=== PATIENT | male | born 1995 | race Caucasian/White ===

== ENCOUNTER 2017-04-07 23:13 | Emergency (ER) | payer OTHER ==
[~2017-04-07] VITALS: Ht 185.4 cm; Wt 97.7 kg
[2017-04-07] MEDS ORDERED: KETOROLAC 60 MG INJ IM STA (23:29)
[2017-04-07] MEDS ORDERED: HYDROCODONE/APAP (10/325) TAB PO ONE (23:30)
[2017-04-07 23:40] VITALS: Ht 185.4 cm; Wt 97.7 kg
--- NOTE | 2017-04-08 00:39 | RADRPT ---
PROCEDURE: XR shoulder. CLINICAL INDICATION: Pain TECHNIQUE: Two views of the right shoulder were performed. COMPARISON: None available. FINDINGS: There is normal mineralization and alignment. No fracture or osseous lesion is identified. The joint spaces are preserved. The soft tissues are unremarkable. RPTAT:HJJR IMPRESSION: Unremarkable right shoulder series. Physician Lopez Date Time Electronically viewed and signed by Andre Nassar Physician on 04/08/2017 00:39 JR/
[2017-04-08] MEDS ORDERED: IBUP-1542 PO (00:42)
--- NOTE | 2017-04-08 00:44 | ERD ---
ER Documentation Chief Complaint Date/Time DATE: 04/08/17 TIME: 00:43 Chief Complaint right shoulder pain due to fall onto ice ground level HPI This is a 21-year-old male who has right shoulder pain secondary to a fall on an ice rink. He says he fell onto his right shoulder. He has pain on range of motion. Pain is mild to moderate in intensity. No nausea no vomiting no chills. No head trauma. Pain is been going on for approximately 2 hours. ROS All systems reviewed and are negative except as per history of present illness. Medications Home Meds Active Scripts Ibuprofen* (Motrin*) 600 Mg Tab, 600 MG PO Q6, #30 TAB Prov:LUCIANO CERVANTES 04/08/17 PMhx/Soc Medical and Surgical Hx: pt denies Medical Hx, pt denies Surgical Hx Hx Alcohol Use: Yes (socially) Hx Substance Use: Yes (socially) Hx Tobacco Use: No Smoking Status: Never smoker Physical Exam Vitals Vital Signs Date Time Temp Pulse Resp B/P Pulse Ox O2 Delivery O2 Flow Rate FiO2 04/07/17 23:40 98.7 89 15 153/73 97 Physical Exam Const: [] Head: Atraumatic Eyes: Normal Conjunctiva ENT: Normal External Ears, Nose and Mouth. Neck: Full range of motion..~ No meningismus. Resp: Clear to auscultation bilaterally Cardio: Regular rate and rhythm, no murmurs Abd: Soft, non tender, non distended. Normal bowel sounds Skin: No petechiae or rashes Back: No midline or flank tenderness Ext: No cyanosis, or edema Neur: Awake and alert Psych: Normal Mood and Affect Results 24 hrs Current Medications Medications (Trade) Dose Ordered Sig/Christopher Route PRN Reason Start Time Stop Time Status Last Admin Dose Admin Ketorolac Tromethamine (Toradol) 60 mg ONCE STAT IM 04/07/17 23:29 04/07/17 23:30 DC 04/07/17 23:37 Acetaminophen/ Hydrocodone Bitart ([place] (10/325)) 1 tab ONCE ONCE PO 04/07/17 23:30 04/07/17 23:31 DC 04/07/17 23:38 Procedures/MDM X-ray Shoulder 3V Interpreted by me: Bones: [No fracture] Joints: [No dislocation] Foreign body: [None] Makin-year-old male right shoulder contusion. Placed in shoulder sling. At this point clinically stable for outpatient management. Return for worsening symptoms. Departure Diagnosis: Primary Impression: Shoulder injury Encounter type: initial encounter Laterality: right Qualified Code: S49.91XA - Injury of right shoulder, initial encounter Condition: Stable Patient Instructions: Shoulder Contusion LUCIANO CERVANTES Apr 08, 2017 00:44
== END 2017-04-08 00:31 | disposition home or self-care (01) ==
LOC: E/R 23:13
DX: S49.91XA Unspecified injury of right shoulder and upper arm, initial encounter (principal); W18.39XA Other fall on same level, initial encounter; Y92.9 Unspecified place or not applicable
CPT/HCPCS: 73030; 96372; 99284; J1885